=== PATIENT | female | born 1995 | race Caucasian/White ===

== ENCOUNTER 2019-03-23 15:08 | Emergency (ER) | payer BC, OTHER ==
[~2019-03-23] VITALS: Ht 170.2 cm; Wt 110.0 kg
[2019-03-23 16:18] LABS: BASOPHILS # (AUTO) 0.03 x10^3/uL (0-0.1); BASOPHILS % (AUTO) 1 % (0-1); EOSINOPHILS # (AUTO) 0.11 x10^3/uL (0-0.4); EOSINOPHILS % (AUTO) 2 % (1-7); LYMPHOCYTES # (AUTO) 2.32 x10^3/uL (1-3.4); LYMPHOCYTES % (AUTO) 47 % (22-44); MD NO; MEAN CORPUSCULAR HEMOGLOBIN 29.7 pg (27.0-34.8); MEAN CORPUSCULAR VOLUME 89.8 fL (80-100); MEAN PLATELET VOLUME 7.5 fL (7.4-10.4); MONOCYTES # (AUTO) 0.49 x10^3/uL (0.2-0.8); MONOCYTES % (AUTO) 10 % (2-9); NEUTROPHILS # (AUTO) 1.97 x10^3/uL (1.8-6.8); NEUTROPHILS % (AUTO) 40 % (42-75); PLATELET COUNT 173 x10^3/uL (130-400); RED BLOOD COUNT 4.74 x10^6/uL (3.82-5.3); RED CELL DISTRIBUTION WIDTH 13.2 % (9.6-15.2)
[2019-03-23 16:28] LABS: ALANINE AMINOTRANSFERASE 53 U/L (12-78); ALBUMIN 3.6 g/dL (3.4-5.0); ANION GAP 8 mmol/L (5-15); CHLORIDE 108 mmol/L (98-107); CREATININE 0.82 mg/dL (0.55-1.02)
[2019-03-23 16:33] LABS: ALKALINE PHOSPHATASE 76 U/L (45-117); BILIRUBIN,TOTAL 0.4 mg/dL (0.2-1.0); TOTAL PROTEIN 8.3 g/dL (6.4-8.2)
--- NOTE | 2019-03-23 17:39 | NUR ---
SYSTEMS REQUIREMENTS PLANNER: PT AMBULATORY WITH STEADY GAIT TO ROOM FROM LOBBY AT THIS TIME.
[2019-03-23] MEDS ORDERED: ETON1VAG VG (18:11)
--- NOTE | 2019-03-23 18:13 | NUR ---
DR DUONG AT BEDSIDE. PT ASSESSMENT REVIEWED, POC DISCUSSED.
[2019-03-23 18:34] LABS: CULTURE INDICATED? YES; MICROSCOPIC INDICATED
--- NOTE | 2019-03-23 18:53 | NUR ---
REPORT FROM [facility] ASSUMED CARE OF PT AT THIS TIME
[2019-03-23 19:01] VITALS: BP 130/81
[2019-03-23] MEDS ORDERED: OMNIPAQUE 350 MG/ML, 100ML BOTTLE ONE (20:48)
--- NOTE | 2019-03-23 21:26 | NUR ---
Patient/Caregiver given discharge instructions and they have confirmed that they understand the instructions. Patient ambulatory with steady gait.
== END 2019-03-23 21:27 | disposition home or self-care (01) ==
LOC: ED 21:21
DX: N30.00 Acute cystitis without hematuria (principal); R06.00 Dyspnea, unspecified; R51 Headache; K59.00 Constipation, unspecified; E87.6 Hypokalemia
CPT/HCPCS: 36415; 70450; 71275; 74022; 80053; 81001; 83690; 84703; 85025; 85379; 87086; 93005; 99284; Q9967